=== PATIENT | male | born 1950 | race Caucasian/White ===

== ENCOUNTER → 2016-05-01 | Outpatient (CLI) | payer OTHER ==
[~2016-05-01] MED LIST: CELEXA20 MG PO; HYDROCHLOROTHIA25 MG PO; MOBIC15 MG PO; RITALIN 20 MG PO; TOPROL XL100 MG PO; TOVIAZ8 MG PO; ZOCOR40 MG PO
== END | disposition disaster alternative care site (69) ==
LOC: GRAD 16:49
DX: M54.9 Dorsalgia, unspecified (principal); M47.816 Spondylosis without myelopathy or radiculopathy, lumbar region; M41.9 Scoliosis, unspecified; M43.16 Spondylolisthesis, lumbar region

== ENCOUNTER → 2016-05-01 | Outpatient (CLI) | payer OTHER | END | disposition disaster alternative care site (69) | LOC: GRAD 13:30 | DX: M54.16 Radiculopathy, lumbar region (principal); M47.26 Other spondylosis with radiculopathy, lumbar region; M47.27 Other spondylosis with radiculopathy, lumbosacral region; M51.17 Intervertebral disc disorders with radiculopathy, lumbosacral region; M48.06 Spinal stenosis, lumbar region; M41.9 Scoliosis, unspecified ==

== ENCOUNTER → 2016-05-02 | Day surgery (SDC) | payer OTHER ==
--- NOTE | ~2016-05-02 | OR ---
PATIENT'S NAME: JI [facility]LES [facility] AGE: 66 Y [address] ROOM: [place] [id number] LOC[place] [facility] [place] DATE: 05/02/2016 OR/Procedure Report DISCHARGE DATE: FAMILY PHYSICIAN: ROMÁN RICO MD ATTENDING PHYSICIAN: Sandi Duffy SURGEON: Ernst Wheeler MD MINE ENGINEERING SUPERVISOR: DATE OF PROCEDURE: 05/02/2016 PROCEDURE: A lumbar epidural steroid injection, interlaminar L4-5. INDICATION: The patient has foraminal stenosis, lumbar spondylolisthesis, canal stenosis, and lumbar degenerative disk disease with radiculopathy. Risks, benefits, and alternatives were explained to the patient and he wished to proceed. DESCRIPTION OF PROCEDURE: He was taken to the procedure room and placed in prone position. Fluoroscopy was used to identify the L4-5 disk interspace. There, he was cleaned with Betadine x3 and sterile drape was applied over top. 3 mL of 1% lidocaine was used to numb the skin. Next, an 18-gauge Tuohy needle was advanced in the L4-5 interspace using fluoroscopic guidance and loss of resistance technique. Once the needle was felt to be in position, 1 mL of Isovue was injected in AP and lateral views showing good epidural spread. No intravascular uptake. Next, a mixture of 3 mL of 0.25% bupivacaine, 8 mg of preserved Decadron, and 80 mg of Depo-Medrol were injected without complication. A stylette placed, the needle removed, hemostasis achieved. BLOOD LOSS: None. COMPLICATIONS: None. PLAN: Discussed with the patient he does have significant disk collapse and canal stenosis and is likely scheduled for surgery with Dr. Duffy and did state this could help with his pain in the interim time, but will likely need surgery for definitive treatment. The patient is aware of this and all questions were answered. ERNST WHEELER MD JJP/alejandrol PATIENT'S NAME: JI CHARLES [facility] AGE: 66 Y [address] ROOM: [place] [id number] LOCATION: [facility] [place] DATE: 05/02/2016 OR/Procedure Report DISCHARGE DATE: FAMILY PHYSICIAN: ROMÁN RICO MD ATTENDING PHYSICIAN: Sandi Duffy /[id number] d: 05/02/16 1825 t: 05/10/16 1053, OPERATIVE SUMMARY
== END | disposition disaster alternative care site (69) ==
LOC: GSDC 12:30 → GPOC 12:30 → GSDC 12:36 → GPOC 13:00
PROC: 3E0R33Z Introduction of Anti-inflammatory into Spinal Canal, Percutaneous Approach (ICD-10-PCS; principal; 2016-05-02)
PROC: 3E0R3BZ Introduction of Anesthetic Agent into Spinal Canal, Percutaneous Approach (ICD-10-PCS; 2016-05-02)
DX: M51.16 Intervertebral disc disorders with radiculopathy, lumbar region (principal); M48.06 Spinal stenosis, lumbar region; M43.16 Spondylolisthesis, lumbar region; I10 Essential (primary) hypertension
CPT/HCPCS: J1040